=== PATIENT | female | born 1950 | race African-American/Black ===

== ENCOUNTER 2018-09-20 06:37 | Day surgery (SDC) | payer OTHER ==
--- NOTE | 2018-09-14 16:21 | RAD REPORT ---
EXAM DESCRIPTION: Nicholas Luna (2 Views)09/14/2018 3:59 pm CLINICAL HISTORY: Preop for hand surgery COMPARISON: None FINDINGS: The lungs appear clear of acute infiltrate. The heart is normal size IMPRESSION: No acute abnormalities displayed
[2018-09-14 16:39] LABS: Potassium 3.4 mmol/L (3.5-5.1)
[2018-09-14 16:43] LABS: Absolute Lymphocytes (CBC) 2.9 K/uL (0.7-4.9); Absolute Monocytes 0.7 K/uL (0.1-1.3); Absolute Neutrophil 3.1 K/uL (1.8-8.0); Basophils % 0.8 % (0-1.3); Eosinophils % 2.4 % (0-4.4); Lymphocytes % 42.1 % (15.3-44.8); MPV 8.5 fL (7.6-11.3); Monocytes % 10.4 % (3.3-12.3)
[2018-09-14 16:56] LABS: Protime INR 1.04
--- NOTE | 2018-09-14 17:13 | EKG ---
Test Date: 2018-09-14 Test Time: 15:43:20 Grease Press Helper: CARMELO MEASUREMENT RESULTS: Intervals: Rate: 58 IN: 254 QRSD: 94 QT: 430 QTc: 422 [place]: P: 57 IN: 254 QRS: 35 T: 58 INTERPRETIVE STATEMENTS: Sinus bradycardia with 1st degree AV block Otherwise normal ECG Compared to ECG 12/17/2016 09:34:44 No significant changes Electronically Signed On 09-14-18 17:12:44 CDT by Mann James
--- OUTSIDE RECORDS SUMMARY | 2018-09-20 06:40 | XMS REPORT ---
:1950 [facility] [address] [place] [address] Care Team Providers Name Role Phone Unavailable Unavailable Unavailable Problems This patient has no known problems. Allergies, Adverse Reactions, Alerts This patient has no known allergies or adverse reactions. Medications This patient has no known medications.
[2018-09-20] MEDS ORDERED: CEFAZOLIN/SWI 2gm 2 GM/20 ML SYR ONE (07:12)
[2018-09-20] MEDS ORDERED: NA CHLORIDE 0.9% 1,000 ML ONE (07:12)
[2018-09-20] MEDS ORDERED: MIDAZOLAM HCL 2 MG/2 ML INJ ONE (07:15)
[2018-09-20] MEDS ORDERED: FENTANYL CITR 100 MCG/2 ML ONE ×2 (07:15→08:23)
[2018-09-20] MEDS ORDERED: KETOROLAC 30 MG/ML INJ ONE (07:15)
[2018-09-20] MEDS ORDERED: PROPOFOL 200 MG/20 ML VIAL IV ONE (07:15)
[2018-09-20] MEDS ORDERED: LIDOCAINE 2% MPF 5 ML VIAL ONE (07:15)
[2018-09-20] MEDS: BUPIVACAINE 0.25% PF 10 ML VIAL ONE ×2 (08:06→08:50)
--- NOTE | 2018-09-20 09:05 | P.BOP ---
Preoperative diagnosis: left carpal tunnel syndrome, left index, long, ring, small trigger fingers Postoperative diagnosis: same Primary procedure: left carpal tunnel release Secondary procedure: left index, long, ring, small finger A1 josette release Chaperone: NONE,NONE Estimated blood loss: 5 cc Specimen: none Findings: see dictation Anesthesia: General Complications: None Implants: none Fluids & blood products: per anesthesia; TT: 58 mins @ 250 mmHg Transferred to: Recovery Room Condition: Good
[2018-09-20] MEDS: MORPHINE 4 MG/ML SYR ONE ×2 (09:23→09:30)
[2018-09-20] MEDS ORDERED: MORPHINE 4 MG/ML SYR ONE (09:35)
[2018-09-20] MEDS ORDERED: CODEINE 30MG/APAP 300MG TAB ONE (10:15)
--- NOTE | 2018-09-27 17:29 | OP ---
Date of Procedure: 09/20/2018 Surgeon: Russell Cummings MD Cartography/Mapping Technician: None. Preoperative Diagnoses: 1.Left carpal tunnel syndrome. 2.Left index finger, long finger, ring finger, small finger trigger digits. Postoperative Diagnoses: 1.Left carpal tunnel syndrome. 2.Left index finger, long finger, ring finger, small finger trigger digits. Procedures Performed: 1.Left carpal tunnel release. 2.Left index finger, long finger, ring finger, small finger A1 josette releases. Anesthesia: General LMA. Fluids: Per Anesthesia record. Estimated Blood Loss: Less than 5 cc. Specimens: None. Complications: None. Implants: None. Indication For Procedure: Bob is a 68-year-old female who presented to my clinic with signs, symp toms, and nerve conduction studies findings consistent with left carpal tunnel syndrome as well as in dex finger, long finger, ring finger, small finger trigger digits. She had failed conservative treat ment measures and history of her diabetes recommended operative treatment. I discussed with the rayne ent at length risks and benefits associated with operative and nonoperative treatment. She expressed understanding and elected to proceed with operative treatment. Description Of Procedure: After informed consent was obtained, the patient was identified in the pre operative holding area. The left upper extremity was marked as well as her index finger, long finger , ring finger, and small finger. She was then taken back to the operating room, transferred to the o perating table in supine fashion, placed under general anesthesia. The left upper extremity was then prepped and draped in usual sterile fashion. A time-out was initiated. The correct patient and pro cedure were confirmed and identified. The patient did receive preoperative prophylactic antibiotics. The left upper extremity was then exsanguinated using an Esmarch and the tourniquet was inflated to 250 mmHg. Attention was first taken to the carpal tunnel. Approximately a 3 cm longitudinal incisi on was made just ulnar to the thenar crease on the palm. Dissection was then taken down the palmar f ascia, just deep to the palmar fascia and the transverse carpal ligament, a [place] elevator was then p laced. Using a [place] blade, the palmar fascia was released as well as the transverse carpal ligamen t, again protecting the median nerve at all times using the [place] elevator below the transverse carpa l ligament. After this was completed in a distal to proximal fashion, remaining fascial bands were r eleased using Metzenbaum scissors with the tips pointed superficially to the skin to ensure again pro tection of the median nerve. After complete release of the transverse carpal ligament, the wound was then irrigated thoroughly with normal saline. Next, attention was taken to the small finger. Appro ximately 1 cm incision was made over the metacarpal head of the small finger. Dissection was then ta laura down to the flexor tendon sheath, and a 15-blade was then used to perform a complete release of t he flexor tendon sheath at the A1 josette. The tendon was then brought out through the incision, and there was full excursion from the flexor tendon without any triggering. Next, attention was taken to the ring finger A1 josette where a 1 cm incision was made centered over the metacarpal head. Dissect ion was then taken down the flexor tendon sheath, which was exposed and released using a 15-blade at the level of the A1 josette, and full release of the A1 josette and flexor tendon was brought out of th e incision with full excursion of the flexor tendon without any triggering noted. There was a signif icant amount of synovitis with increased amount of fluid around the ring finger A1 josette as well as thickening of the flexor tendon sheath noted. Next, attention was taken to the long finger in which a 1 cm incision was made over the metacarpal head. Dissection was then taken to the flexor tendon sh eath A1 josette and this were released using a 15-blade. The flexor tendon was then brought out throu gh the incision with full excursion without any triggering noted. Finally, a 1 cm incision was made over the index finger A1 josette over the second metacarpal head. Dissection was taken down the flexo r tendon sheath. This was released using a 15-blade with complete release of the A1 josette, and ther e was some increased synovitis noted. There was full excursion of the flexor tendon when brought out through the incision without any triggering noted. All the wounds were then irrigated thoroughly wi th normal saline, and the incisions were then approximated using a 5-0 Prolene. Sterile dressings we re applied. Tourniquet was let down. The patient awakened, transferred to PACU in stable condition. Postoperative Plan: She will follow up next week for wound check and suture removal. She may begin working on range of motion exercises. CV/MODL Voice ID: [id number] Report ID: [id number]
== END 2018-09-20 11:00 | disposition home or self-care (01) ==
LOC: PRE 06:37
PROVIDERS: ATTEND Orthopaedic Surgery Sports Medicine
PROC: 0LN80ZZ Release Left Hand Tendon, Open Approach (ICD-10-PCS; 2018-09-20)
PROC: 0LN80ZZ Release Left Hand Tendon, Open Approach (ICD-10-PCS; 2018-09-20)
PROC: 0LN80ZZ Release Left Hand Tendon, Open Approach (ICD-10-PCS; 2018-09-20)
PROC: 01N50ZZ Release Median Nerve, Open Approach (ICD-10-PCS; principal; 2018-09-20 07:30)
PROC: 0LN80ZZ Release Left Hand Tendon, Open Approach (ICD-10-PCS; 2018-09-20 07:30)
DX: M65.322 Trigger finger, left index finger (principal); M65.332 Trigger finger, left middle finger; M65.352 Trigger finger, left little finger; M65.342 Trigger finger, left ring finger; M65.842 Other synovitis and tenosynovitis, left hand; E11.9 Type 2 diabetes mellitus without complications; I10 Essential (primary) hypertension; F17.210 Nicotine dependence, cigarettes, uncomplicated; Z79.84 Long term (current) use of oral hypoglycemic drugs; Z79.82 Long term (current) use of aspirin; Z79.899 Other long term (current) drug therapy
CPT/HCPCS: 64721; 26055 ×4; 93005; 85025; 80048; 36415; 85610; 85730; 71046; J2704; J2250; J3010 ×2; J0690; J7030